=== PATIENT | female | born 1970 | race Caucasian/White ===

== ENCOUNTER 2023-01-21 11:24 | Observation (INO) ==
[2023-01-21 12:48] LABS: ABS Lymphocytes 1.3 10^3/uL (1.0-4.8); ABS Monocytes 0.4 10^3/uL (0.0-0.9); Eosinophil % 0.3 %; Hematocrit 39.2 % (35-45); Hemoglobin 12.9 g/dL (11.5-14.3); Lymphocyte % 23.2 %; Mean Corpuscular Hemoglobin 29.4 pg (27-33); Mean Corpuscular Volume 89.1 fL (80-97); Mean Platelet Volume 8.3 fL (7.5-11.2); Platelet Count 278 10^3/uL (150-450); Red Cell Distribution Width 13.4 % (12-17); White Blood Count 5.7 10^3/uL (3.8-11.8)
[2023-01-21 13:13] LABS: ALT 16 U/L (7-52); AST 23 U/L (13-39); Albumin 4.8 g/dL (3.2-5.2); Albumin/Globulin Ratio 1.8 (1-3); Alkaline Phosphatase 49 U/L (35-149); Anion Gap 12 mmol/L (2-16); Blood Urea Nitrogen 16 mg/dL (6-24); CO2 Carbon Dioxide 26 mmol/L (22-32); Calcium 10.3 mg/dL (8.6-10.3); Chloride 102 mmol/L (101-111); Creatinine, Serum 0.77 mg/dL (0.51-0.95); Globulin 2.7 g/dL (2-4); Glucose 97 mg/dL (70-100); Potassium 3.3 mmol/L (3.5-5.0); Sodium 140 mmol/L (135-145); Total Bilirubin 0.4 mg/dL (0.2-1.0); Total Protein 7.5 g/dL (6.4-8.9); eGFR CKD-EPI 92.8 (>60)
[2023-01-21 13:25] LABS: Acetaminophen < 15 mcg/mL; Alcohol, S < 13 mg/dL (<13); Salicylate < 2.50 mg/dL (<30)
[2023-01-21] MEDS ORDERED: Nicotine GUM 2MG FRUIT FLAVOR PO ONE (13:32)
[2023-01-21] MEDS ORDERED: Nicotine GUM 2MG FRUIT FLAVOR PO PRN (13:35)
[2023-01-21] MEDS ORDERED: Nicotine PATCH 7 MG/24 HR PATCH TRANSDERM ONE (13:36)
[2023-01-21 13:39] LABS: TSH Ultra Thyroid Stim Horm 3.04 mcIU/mL (0.34-5.60)
[2023-01-21] MEDS ORDERED: Potassium Chlor 20 meq TAB.ER PO ONE (15:14)
[2023-01-21 15:34] LABS: Urine Appearance Cloudy; Urine Bilirubin Negative (Negative); Urine Blood 2+ (Negative); Urine Color Yellow; Urine Glucose Negative (Negative); Urine Ketones 1+ (Negative); Urine Nitrite Negative (Negative); Urine Protein 1+(30 mg/dL) (Negative); Urine Specific Gravity 1.021 (1.002-1.030); Urine Urobilinogen Negative (Negative)
[2023-01-21 15:40] LABS: Urine Bacteria Absent (Absent); Urine Red Blood Cell 3+(>10/hpf) (Absent); Urine Squamous Epithelial Cell Present (Absent); Urine White Blood Cell 3+(>20/hpf) (Absent)
[2023-01-21 15:44] LABS: Urine Benzodiazepine Screen Presumptive Positive (None Detect); Urine Cannabinoids Screen Presumptive Positive (None Detect); Urine Opiates Screen None Detected (None Detect)
[2023-01-21] MEDS ORDERED: cefTRIAXone 1 gm/50 mL D5W 1 GM/50 ML BAG IV ONE (16:23)
[2023-01-21] MEDS ORDERED: Haloperidol 5 mg/ml SDV IV/IM 5 MG/ML AMP IV SLOW PU PRN (17:40)
[2023-01-21] MEDS: levETIRAcetam 500 MG IVPREMIX 500 MG/100 ML BAG IV SCH (19:14)
[2023-01-22] MEDS: levETIRAcetam 500 MG IVPREMIX 500 MG/100 ML BAG IV SCH ×2 (05:25→18:18)
[2023-01-22 07:54] LABS: ABS Lymphocytes 0.9 10^3/uL (1.0-4.8); ABS Monocytes 0.4 10^3/uL (0.0-0.9); ABS Neutrophils 3.9 10^3/uL (1.5-7.6); ABS Nucleated RBC 0.01 10^3/ul; Eosinophil % 0.4 %; Hematocrit 36.5 % (35-45); Hemoglobin 12.2 g/dL (11.5-14.3); Lymphocyte % 17.2 %; Mean Corpuscular Hemoglobin 29.8 pg (27-33); Mean Corpuscular Hgb Conc 33.5 g/dL (31-36); Mean Corpuscular Volume 88.8 fL (80-97); Mean Platelet Volume 8.2 fL (7.5-11.2); Nucleated Red Blood Cells % 0.1 %/100WBC (0.0-0.8); Platelet Count 261 10^3/uL (150-450); Red Blood Count 4.11 10^6/uL (3.63-4.92); Red Cell Distribution Width 13.5 % (12-17); White Blood Count 5.2 10^3/uL (3.8-11.8)
[2023-01-22 08:15] LABS: Calcium 9.5 mg/dL (8.6-10.3); Creatinine, Serum 0.77 mg/dL (0.51-0.95); Magnesium 1.9 mg/dL (1.9-2.7); Potassium 3.9 mmol/L (3.5-5.0); eGFR CKD-EPI 92.2 (>60)
[2023-01-22] MEDS: Nicotine PATCH 14 MG/24 HR PATCH TRANSDERM SCH (08:44)
[2023-01-22] MEDS: Buprenorp/Nalox 8-2 MG FILM SL SCH (08:47)
[2023-01-22] MEDS ORDERED: Polyethylene Glycol 3350 17 GM PACKET PO PRN (17:23)
[2023-01-22] MEDS ORDERED: Senna TAB 8.6 mg TAB PO PRN (17:23)
[2023-01-22] MEDS: Magnesium Hydroxide LIQ 30 ML UDC PO PRN (18:21)
[2023-01-22 19:03] LABS: Folate 11.82 ng/mL (5.90-24.80)
[2023-01-22] MEDS: Magnesium Hydroxide LIQ 30 ML UDC PO SCH (20:47)
[2023-01-23] MEDS: Magnesium Hydroxide LIQ 30 ML UDC PO PRN (00:42)
[2023-01-23] MEDS: levETIRAcetam 500 MG IVPREMIX 500 MG/100 ML BAG IV SCH (05:27)
[2023-01-23 06:57] LABS: ABS Eosinophils 0.1 10^3/uL (0.0-0.5); ABS Lymphocytes 1.6 10^3/uL (1.0-4.8); ABS Monocytes 0.3 10^3/uL (0.0-0.9); ABS Neutrophils 2.2 10^3/uL (1.5-7.6); ABS Nucleated RBC 0.01 10^3/ul; Eosinophil % 1.3 %; Hematocrit 35.7 % (35-45); Hemoglobin 12.1 g/dL (11.5-14.3); Lymphocyte % 36.9 %; Mean Corpuscular Hemoglobin 30.1 pg (27-33); Mean Corpuscular Volume 88.6 fL (80-97); Mean Platelet Volume 8.6 fL (7.5-11.2); Nucleated Red Blood Cells % 0.2 %/100WBC (0.0-0.8); Platelet Count 253 10^3/uL (150-450); Red Blood Count 4.03 10^6/uL (3.63-4.92); Red Cell Distribution Width 13.8 % (12-17); White Blood Count 4.2 10^3/uL (3.8-11.8)
[2023-01-23 07:52] LABS: Calcium 9.5 mg/dL (8.6-10.3); Creatinine, Serum 0.62 mg/dL (0.51-0.95); Magnesium 2.3 mg/dL (1.9-2.7); Potassium 3.1 mmol/L (3.5-5.0); eGFR CKD-EPI 106.4 (>60)
[2023-01-23] MEDS: Nicotine PATCH 14 MG/24 HR PATCH TRANSDERM SCH (09:55)
[2023-01-23] MEDS: Buprenorp/Nalox 8-2 MG FILM SL SCH (09:55)
[2023-01-23] MEDS: Magnesium Hydroxide LIQ 30 ML UDC PO SCH (10:04)
[2023-01-23 13:52] VITALS: BP 135/88
== END 2023-01-23 14:10 | disposition home or self-care (01) ==
LOC: EDHOLD 11:24 → ED 11:24 → SUATTDRO 17:28 → EDHOLD 01-22 10:02 → MED 01-22 13:29
PROVIDERS: ADMIT Internal Medicine; ATTEND Internal Medicine

== ENCOUNTER 2023-09-16 11:34 | Observation (INO) ==
[2023-09-16 12:55] LABS: Hematocrit 40.6 % (35-45); Hemoglobin 12.8 g/dL (11.5-14.3); Platelet Count 290 10^3/uL (150-450); Red Blood Count 5.43 10^6/uL (3.63-4.92); Red Cell Distribution Width 15.8 % (12-17); White Blood Count 12.6 10^3/uL (3.8-11.8)
[2023-09-16 13:02] LABS: High Sens Troponin Baseline 3 pg/mL (<15)
[2023-09-16 13:21] LABS: ALT 20 U/L (7-52); AST 20 U/L (13-39); Albumin/Globulin Ratio 1.8 (1-3); Alkaline Phosphatase 132 U/L (35-149); Anion Gap 20 mmol/L (2-16); Blood Urea Nitrogen 25 mg/dL (6-24); CO2 Carbon Dioxide 18 mmol/L (22-32); Calcium 10.1 mg/dL (8.6-10.3); Chloride 100 mmol/L (101-111); Creatinine, Serum 0.93 mg/dL (0.51-0.95); Globulin 2.8 g/dL (2-4); Glucose 144 mg/dL (70-100); Potassium 3.7 mmol/L (3.5-5.0); Sodium 138 mmol/L (135-145); Total Bilirubin 0.6 mg/dL (0.2-1.0); Total Protein 7.8 g/dL (6.4-8.9); eGFR CKD-EPI 73.5 (>60)
[2023-09-16 13:34] LABS: ABS Lymphocytes 1.1 10^3/uL (1.0-4.8); ABS Monocytes 0.8 10^3/uL (0.0-0.9); ABS Neutrophils 10.7 10^3/uL (1.5-7.6); Lymphocyte % 8.5 %; Mean Corpuscular Hemoglobin 23.5 pg (27-33); Mean Corpuscular Hgb Conc 31.5 g/dL (31-36); Mean Corpuscular Volume 74.8 fL (80-97)
[2023-09-16 13:45] LABS: Vitamin B12 > 1450 pg/mL (180-914)
[2023-09-16 14:24] LABS: High Sensitivity Troponin 1 Hr 3 pg/mL (<15)
[2023-09-16 15:01] LABS: Venous Bicarbonate HCO3 21.9 mmol/L (24-28)
[2023-09-16 16:35] LABS: Urine Appearance Clear; Urine Bilirubin Negative (Negative); Urine Blood 1+ (Negative); Urine Color Yellow; Urine Glucose Negative (Negative); Urine Ketones 4+ (Negative); Urine Nitrite Negative (Negative); Urine Protein 1+ (>=30 mg/dL) (Negative); Urine Specific Gravity 1.044 (1.002-1.030); Urine Urobilinogen Negative (Negative)
[2023-09-16 16:47] LABS: Urine Bacteria 1+ /HPF (Absent); Urine Red Blood Cell 3+(>10/hpf) /HPF (0-Trace); Urine Squamous Epithelial Cell Present /HPF (Absent); Urine White Blood Cell 2+(11-20/hpf) /HPF (0-Trace)
[2023-09-16 21:53] LABS: Creatine Kinase 81 U/L (10-223)
[2023-09-16 22:47] LABS: Folate > 20.00 ng/mL (5.90-24.80)
[2023-09-16 22:49] LABS: TSH Ultra Thyroid Stim Horm 1.94 mcIU/mL (0.34-5.60)
[2023-09-16 22:51] LABS: Free T4 1.36 ng/dL (0.61-1.12)
[2023-09-16 22:56] LABS: Total T3 70 ng/dL (87-178)
[2023-09-17] MEDS: Buprenorp/Nalox 8-2 MG FILM SL SCH (07:42)
[2023-09-17] MEDS: cefTRIAXone 1 gm/50 mL D5W 1 GM/50 ML BAG IV SCH (07:56)
[2023-09-17 09:21] LABS: ABS Lymphocytes 1.1 10^3/uL (1.0-4.8); ABS Monocytes 0.6 10^3/uL (0.0-0.9); ABS Neutrophils 5.4 10^3/uL (1.5-7.6); Eosinophil % 0.6 %; Hematocrit 38.5 % (35-45); Hemoglobin 12.8 g/dL (11.5-14.3); Lymphocyte % 15.4 %; Mean Corpuscular Hemoglobin 24.5 pg (27-33); Mean Corpuscular Hgb Conc 33.1 g/dL (31-36); Mean Corpuscular Volume 74.1 fL (80-97); Mean Platelet Volume 8.5 fL (7.5-11.2); Nucleated Red Blood Cells % 0.1 %/100WBC (0.0-0.8); Platelet Count 248 10^3/uL (150-450); Red Cell Distribution Width 15.6 % (12-17); White Blood Count 7.2 10^3/uL (3.8-11.8)
[2023-09-17 10:28] LABS: Calcium 9.4 mg/dL (8.6-10.3); Creatinine, Serum 0.74 mg/dL (0.51-0.95); Potassium 3.4 mmol/L (3.5-5.0); eGFR CKD-EPI 96.7 (>60)
[2023-09-17] MEDS: Nicotine PATCH 21 MG/24 HR PATCH TRANSDERM SCH (12:13)
[2023-09-17] MEDS: levETIRAcetam LIQ 500 MG/5 ML UDC PO SCH (19:38)
[2023-09-18 05:51] LABS: ABS Basophils 0.1 10^3/uL (0.0-0.1); ABS Eosinophils 0.1 10^3/uL (0.0-0.5); ABS Lymphocytes 1.7 10^3/uL (1.0-4.8); ABS Monocytes 0.5 10^3/uL (0.0-0.9); ABS Neutrophils 3.5 10^3/uL (1.5-7.6); Eosinophil % 1.5 %; Hematocrit 38.9 % (35-45); Hemoglobin 12.5 g/dL (11.5-14.3); Lymphocyte % 28.9 %; Mean Corpuscular Hemoglobin 24.1 pg (27-33); Mean Corpuscular Hgb Conc 32.1 g/dL (31-36); Mean Corpuscular Volume 74.9 fL (80-97); Platelet Count 215 10^3/uL (150-450); Red Blood Count 5.19 10^6/uL (3.63-4.92); Red Cell Distribution Width 15.8 % (12-17); White Blood Count 5.7 10^3/uL (3.8-11.8)
[2023-09-18 05:54] LABS: Calcium 9.5 mg/dL (8.6-10.3); Creatinine, Serum 0.66 mg/dL (0.51-0.95); Magnesium 1.9 mg/dL (1.9-2.7); Potassium 3.4 mmol/L (3.5-5.0); eGFR CKD-EPI 104.8 (>60)
[2023-09-18 07:03] LABS: Urine Benzodiazepine Screen None Detected (None Detect); Urine Buprenorphine Screen Presumptive Positive (None Detect); Urine Cannabinoids Screen None Detected (None Detect); Urine Fentanyl Screen None Detected (None Detect); Urine Hydrocodone Screen None Detected (None Detect); Urine Opiates Screen None Detected (None Detect)
[2023-09-18] MEDS: Potassium EFFERVES 25 meq TAB PO ONE (09:40)
[2023-09-18 13:23] VITALS: BP 123/95
== END 2023-09-18 16:05 | disposition home or self-care (01) ==
LOC: EDHOLD 11:34 → ED 11:34 → SUATTDRO 19:37 → MED 09-17 05:47
PROVIDERS: ADMIT Internal Medicine; ATTEND Student in an Organized Health Care Education/Training Program